=== PATIENT | male | born 1975 | race Caucasian/White ===

== ENCOUNTER 2020-08-20 09:25 | Emergency (ER) | payer OTHER ==
[~2020-08-20] VITALS: Ht 170.2 cm; Wt 97.5 kg
== END 2020-08-20 10:42 | disposition home or self-care (01) ==
LOC: ER 09:25
DX: T17.228A Food in pharynx causing other injury, initial encounter (principal); W45.8XXA Other foreign body or object entering through skin, initial encounter; Y93.89 Activity, other specified; Y92.89 Other specified places as the place of occurrence of the external cause; Y99.8 Other external cause status

== ENCOUNTER 2020-08-20 12:54 | Outpatient (CLI) | payer OTHER | END 2020-08-20 14:00 | disposition home or self-care (01) | LOC: OFIC 805 12:54 | PROVIDERS: ATTEND Otolaryngology Otology & Neurotology | DX: G61.0 Guillain-Barre syndrome (principal); T17.228A Food in pharynx causing other injury, initial encounter; R13.19 Other dysphagia ==